=== PATIENT | male | born 1965 | race Caucasian/White ===

== ENCOUNTER 2020-07-13 04:40 | Emergency (ER) | payer OTHER, SELFPAY ==
--- NOTE | ~2020-07-13 | XR_ITS ---
EXAMINATION: XR abdomen/kub 1V EXAM DATE: 07/13/2020 06:19 INDICATION: Left flank pain for 3 hours. TECHNIQUE: Frontal projection(s) of the abdomen for interpretation. Correlation is made to CT abdomen same date. FINDINGS: The 7 mm left proximal ureteral stone is well visualized, indicated. Additional small left nephrolithiasis identified. Nonobstructive bowel gas pattern. Mild bony degenerative changes. Calcifi cations in the pelvis are believed to be phleboliths. IMPRESSION: Left proximal ureteral stone, nephrolithiasis identified, indicated. Reviewed, dictated and finalized at location A. HER IMPRESSION: Left proximal ureteral stone, nephrolithiasis identified, indicated .
--- NOTE | ~2020-07-13 | CT_ITS ---
EXAMINATION: CT abdomen pelvis wo con EXAM DATE: 07/13/2020 05:37 INDICATION: Left flank pain. TECHNIQUE: Spiral CT of the abdomen and pelvis was performed without contrast. Axial, coronal and sag ittal images were reviewed. The dose-length product (DLP) for this examination was 1303.91 mGy-cm. The exposure was tailored according to patient size (auto mA exposure control), and iterative reconst ruction (ASIR) was used as additional dose reduction technique. There is no prior study for comparis on. FINDINGS: There are 2 right renal cysts, largest measuring 3 cm. There is a 7 mm stone in the proxima l aspect left ureter with mild obstructive nephropathy. This is at the L4 level. Additional 3 mm infe rior calyceal stone. The prostate is unremarkable. The bladder is unremarkable. The liver, spleen, adrenal glands and pancreas are unremarkable. Gallbladder is unremarkable. No biliary obstruction. There is no retroperitoneal or pelvic lymphadenopathy. Tiny umbilical fat-containing hernia. The appendix is not positively visualized. There is no pericecal inflammatory change to suggest appe ndicitis. The stomach and small bowel are unremarkable. There is expected amount of colonic stool. No free intraperitoneal gas. The heart is normal in size. There are no pericardial or pleural e ffusions. The lung bases are unremarkable. There are no osteoblastic or osteolytic lesions identifi ed. IMPRESSION: 1. Left proximal ureteral 7 mm stone, mild obstructive nephropathy. 2. Small left nephrolithiasis. Reviewed, dictated and finalized at location A. ATION OFFICER
[2020-07-13 04:43] VITALS: BP 164/90; PULSE 92; RESP 17; TEMP 36.3; O2SAT 100
--- NOTE | 2020-07-13 04:57 | ED.BACK ---
HPI - Back Pain/Injury General Chief Complaint: Back Pain/Injury Stated Complaint: L Flank pain Time Seen by Provider: 07/13/20 04:43 Source: patient Mode of arrival: ambulatory Limitations: no limitations History of Present Illness HPI Narrative: This patient is 54 year old male with history of hypertension and hyperlipidemia who presents for evaluation of left flank pain. He states this pain woke him up from his sleep 2 hours ago. He reports his pain is gradually worsening and his pain has also moved to left lower abdomen. He has nausea but no vomiting or diarrhea. She denies fever or chills. He denies dysuria or hematuria. He was able to urinate prior to arrival without difficulty. He also denies taking anything for pain. Related Data Home Medications Medication Instructions Recorded Confirmed rosuvastatin 5 mg PO DAILY 09/18/19 valsartan-hydrochlorothiazide 12.5 tablet PO DAILY 09/18/19 indomethacin 25 mg PO DAILY 07/13/20 07/13/20 Allergies Allergy/AdvReac Type Severity Reaction Status Date / Time No Known Allergies Allergy Verified 07/13/20 05:23 Review of Systems Review of Systems: All systems reviewed & are unremarkable except as noted in HPI and below PMFSH Past Medical History Medical History (Updated 07/13/20 @ 07:13 by Alissa Shah MD) Cervical vertebral fusion 4-6 HTN (hypertension) Sleep apnea Surgical History Surgical History Hx of appendectomy Social History Social History (Updated 09/18/19 @ 16:48 by OCTAVIANO Gracia) Smoking status: Never smoker Gender identity (if verbalized by the patient): Male Exam Const: General: alert Orientation/consciousness: patient oriented x3 Other: patient standing up leaning on counter in pain Eyes: EOM: EOMs intact bilaterally Neck: Neck: no lymphadenopathy Resp: Effort & Inspection: normal respiratory effort and no retractions Auscultation: clear to auscultation bilaterally Cardio: Rate: regular rate Rhythm: regular rhythm Heart sounds: no murmurs GI: GI Palp: Yes Soft to palpation, Yes Tenderness to palpation present (GI) (LUQ), No Guarding due to palpation present (GI), No Rigid due to palpation and No Hernia present : General: Yes no CVA tenderness Back/Spine/Pelvis: Back: no CVA tenderness Skin: General skin exam: normal color Rashes: no rashes Course Reevaluation(s) Reevaluation #1: I discussed CT findings and treatment. I discussed discharge vs admission. He appears comfortable with discharge. Date: 07/13/20 Time: 07:04 Consultations Consultation #1: I Discussed case with Dr. Andrea who is agreeable to patient discharge . Patient should have KUB and urine culture Date: 07/13/20 Time: 07:11 Vital Signs Vital signs: Vital Signs Temperature 97.3 F L 07/13/20 04:43 Pulse Rate 92 07/13/20 04:43 Respiratory Rate 17 07/13/20 04:43 Blood Pressure 164/90 H 07/13/20 04:43 Pulse Oximetry 100 07/13/20 04:43 Temperature 97.3 F L 07/13/20 04:43 Pulse Rate 92 07/13/20 04:43 Respiratory Rate 17 07/13/20 04:43 Blood Pressure 164/90 H 07/13/20 04:43 Pulse Oximetry 100 07/13/20 04:43 MDM - Back Pain/Injury Lab Data Attestation: I reviewed the patient's lab results. Result diagrams: 07/13/20 05:07 07/13/20 05:07 Labs: Lab Results 07/13/20 07/13/20 07/13/20 Range/Units 05:07 05:07 06:47 WBC 7.8 (4.5-10.0) K/mm3 RBC 4.86 (4.6-6.20) M/mm3 Hgb 14.6 (14.0-18.0) g/dL Hct 43.7 (42.0-52.0) % MCV 89.9 (80-100) fl MCH 30.0 (26-34) pg MCHC 33.4 (32-36) g/dl RDW 12.6 (11.5-14.5) % Plt Count 202 (150-375) k/mm3 MPV 9.7 (7.4-10.4) fl Immature Gran % (Auto) 0.5 (0-0.5) % Neut % (Auto) 55.4 (45.5-73.1) % Lymph % (Auto) 33.8 (18.3-44.2) % Grady % (Auto) 8.2 (2.6-8.5) % Eos % (Auto) 1.5 (0-4.4) % Baso % (Auto) 0.6
[2020-07-13] MEDS: ONDANSETRON INJ 4 MG/2 ML VIAL IV PUSH (05:16)
[2020-07-13] MEDS: MORPHINE SULFATE (*CRX) 4 MG/ML INJ IV PUSH (05:16)
[2020-07-13 05:18] LABS: Basophils Absolute Auto 0.1 K/mm3 (0.0-0.1); Basophils Percent Auto 0.6 % (0.2-1.2); Eosinophils Absolute Auto 0.1 K/mm3 (0-0.3); Eosinophils Percent Auto 1.5 % (0-4.4); Hematocrit 43.7 % (42.0-52.0); Hemoglobin 14.6 g/dL (14.0-18.0); Immature Granulocyte Absolute 0.04 K/mm3 (0.00-0.031); Immature Granulocyte Percent A 0.5 % (0-0.5); Lymphocytes Absolute Auto 2.63 K/mm3 (0.9-3.2); Lymphocytes Percent Auto 33.8 % (18.3-44.2); Mean Corpuscular HGB Conc 33.4 g/dl (32-36); Mean Corpuscular Volume 89.9 fl (80-100); Mean Platelet Volume 9.7 fl (7.4-10.4); Monocytes Absolute Auto 0.6 K/mm3 (0.1-0.6); Monocytes Percent Auto 8.2 % (2.6-8.5); Neutrophils Absolute Auto 4.3 K/mm3 (1.3-6.7); Neutrophils Percent Auto 55.4 % (45.5-73.1); Platelet Count Result 202 k/mm3 (150-375); Red Blood Count 4.86 M/mm3 (4.6-6.20); Red Cell Distribution Width 12.6 % (11.5-14.5); White Blood Count 7.8 K/mm3 (4.5-10.0)
[2020-07-13 05:33] LABS: Alanine Aminotransferase 29 U/L (4-50); Albumin Level 4.3 g/dL (3.5-5.1); Alkaline Phosphatase 56 U/L (38-126); Anion Gap 9 mmol/L (8-16); Aspartate Amino Transferase 27 U/L (17-59); Bilirubin,Total 0.4 mg/dL (0.2-1.3); Blood Urea Nitrogen 21 mg/dL (9-20); Calcium 9.3 mg/dL (8.4-10.2); Carbon Dioxide 28 mmol/L (22-30); Chloride 100 mmol/L (98-107); Estimated CRCL calculation 76 ml/min; Estimated Glomerular Filt Rate > 60; Glucose 201 mg/dL (75-110); Lipase 130 U/L (23-300); Potassium 4.2 mmol/L (3.4-5.0); Sodium 137 mmol/L (137-145)
[2020-07-13] MEDS: SODIUM CHLORIDE 0.9% IV 1,000 ML 999 ML IV CONT (05:42)
[2020-07-13] MEDS: MORPHINE SULFATE (*CRX) 4 MG/ML INJ 6 MG IV PUSH (06:39)
[2020-07-13] MEDS: TAMSULOSIN HCL 0.4 MG CAPSULE PO (06:41)
[2020-07-13 07:04] LABS: Add Urine Microscopic? YES; Appearance Urine Clear (Clear); Bilirubin Urine Negative (Negative); Blood Urine 2+ (Negative); Color Urine Straw (Yellow); Glucose Urine UA Negative (Negative); Ketones Urine Negative (Negative); Leukocyte Esterase Ur Negative LEU/UL (Negative); Mucus Urine Rare /lpf; Nitrate Urine Negative (Negative); Protein Urine Negative (Negative); Specific Grav Ur 1.018 (1.001-1.035); Squamous Epithelial Cell Urine Rare /hpf (Few); Urobilinogen Urine Negative mg/dL (<2.0); WBC Urine 0-3 /hpf
== END 2020-07-13 07:39 | disposition home or self-care (01) ==
PROVIDERS: Emergency Provider General Practice; PCP Internal Medicine
DX: N13.2 Hydronephrosis with renal and ureteral calculous obstruction (principal); I10 Essential (primary) hypertension; G47.30 Sleep apnea, unspecified
CPT/HCPCS: 36415; 74018; 74176; 80053; 81001; 83690; 85025; 87086; 96361; 96365; 96375; 96376; 99284; A9270; J0131; J2270; J2405; J7030

== ENCOUNTER 2020-07-15 13:37 | Observation (INO) | payer OTHER, SELFPAY ==
[2020-07-15] VITALS (21 sets, daily range): BP systolic 138–161; BP diastolic 66–82; PULSE 61–94; RESP 16–20; TEMP 36.2–37.4; O2SAT 94–100; BMI 35.3; BMI 35.5
--- NOTE | ~2020-07-15 | XR_ITS ---
EXAMINATION: XR abdomen/kub 1V EXAM DATE: 07/16/2020 07:34 INDICATION: Follow up for lithotripsy of left kidney stone. TECHNIQUE: Frontal projection(s) of the abdomen for interpretation. Comparison is made to prior exami nation from 07/15/2020. FINDINGS: Small stone fragments suspected within the left ureter proximally and distally. This findin g has been indicated, marked on the examination for review, clinical correlation. Large pelvic calcif ications consistent with phleboliths. Moderate amount of colonic stool. Nonobstructive bowel gas dillon francesco. There is no organomegaly. There are mild bony degenerative changes. IMPRESSION: Left ureteral stone fragments. Reviewed, dictated and finalized at location A. NT ASSISTANT
--- NOTE | ~2020-07-15 | XR_ITS ---
XR abdomen/kub 1V DATE: 07/15/2020 18:51 INDICATION: Left lower quadrant abdominal pain today. Lithotripsy yesterday for left kidney stones TECHNIQUE: AP projection, 2 views COMPARISON: 07/15/2020 CT abdomen pelvis noncontrast examination FINDINGS: There is a small calcified calculus at the lower pole of the left kidney. Physical examination no calcified calculi are noted to proxy 3 mm in the proximal left ureter at the L3-4 level. Additional small calcified distal left ureteral calculi are noted. Bilateral calcified pelvic phleboliths. The psoas shadows are intact. No visceromegaly is evident. The bowel gas pattern is unremarkable. IMPRESSION: Small left renal calcified calculus Proximal and distal left ureteral calcified calculi Reviewed, dictated and finalized at Location A. Reviewed, dictated and finalized at location A. TMENT RENTAL CLERK
--- NOTE | ~2020-07-15 | CT_ITS ---
EXAMINATION: CT abdomen pelvis wo con DATE: 07/15/2020 17:18 INDICATION: Abdominal pain TECHNIQUE: Computed tomography (CT) of the abdomen and pelvis was performed without intravenous contr ast. Automated exposure control and iterative reconstruction technique were employed. Exam dose: 105 5.05 mGy-cm total exam DLP. COMPARISON: 07/13/2020 CT abdomen pelvis noncontrast examination 07/13/2020 KUB FINDINGS: There is bilateral lower lobe dependent atelectasis, mild atelectasis at the base of the li ngula. Small probable fissural node along the minor fissure (series 4 image 3). Normal heart size. No pericardial or pleural effusion. The liver, gallbladder, bile ducts, spleen, pancreas and pancreatic duct appear normal. Normal morpho logy of the adrenal glands. There are two approximately 2.1 cm and 2.8 cm upper pole right renal cysts. 4.8 mm nonobstructing lower pole left renal calculus. There is moderate left hydroureteronephrosis. There are multiple left ureteral calculi including up to approximately 4.5 x 9.5 mm proximal left ure teral calculus at the upper L4 level, two or three contiguous distal up to several millimeter left ur eteral calculi. In addition, there is an approximately 2.5 lateral left ureteral vesicle junction george culus. There is some periureteral stranding, particularly at the proximal to mid left ureter, which may be s econdary to obstruction. Infection is not excluded. No right urinary tract calculus or hydroureteronephrosis. Normal caliber of the abdominal aorta. No intraperitoneal or retroperitoneal or pelvic mass lesion or adenopathy or ascites. There is mild prostate calcification. The urinary bladder is unremarkable. No evidence of bowel obstruction. No bowel wall thickening or pneumatosis or intraperitoneal free ai r. Included skeletal structures are unremarkable. IMPRESSION: Multiple left ureteral calculi with moderate left hydroureteronephrosis Lower pole nonobstructing left renal calculus Periureteral stranding on the left which may be secondary to obstruction; infection is not excluded Probable right renal cysts Reviewed, dictated and finalized at Location A. Reviewed, dictated and finalized at location A. AND DIE REPAIRER IMPRESSION: Multiple left ureteral calculi with moderate left hydroureteroneph rosis Lower pole nonobstructing left renal calculus Periureteral stranding on the left which may be secondary to obstruction; infec tion is not excluded Probable right renal cysts
--- NOTE | 2020-07-15 14:57 | ED.GENADULT ---
HPI - General Adult General Chief complaint: Urogenital-Male Stated complaint: abd pain after urology procedure, hematuria Time Seen by Provider: 07/15/20 14:23 Source: patient Mode of arrival: ambulatory Limitations: no limitations History of Present Illness HPI narrative: Patient is a 54-year-old male who presents with left flank pain that began today and acutely increased patient had lithotripsy yesterday has had nausea and vomiting with the pain today is taken Percocet but difficulty keeping medications down secondary to emesis. Patient is followed by urology at [facility] patient notes low-grade fever Related Data Home Medications Medication Instructions Recorded Confirmed rosuvastatin 5 mg PO DAILY 09/18/19 valsartan-hydrochlorothiazide 12.5 tablet PO DAILY 09/18/19 indomethacin 25 mg PO DAILY 07/13/20 07/13/20 Allergies Allergy/AdvReac Type Severity Reaction Status Date / Time No Known Allergies Allergy Verified 07/15/20 13:46 Review of Systems Review of Systems: All systems reviewed & are unremarkable except as noted in HPI and below PMFSH Past Medical History Medical History (Updated 07/15/20 @ 18:49 by Armani Zeng PA-C) Cervical vertebral fusion 4-6 HTN (hypertension) Sleep apnea Surgical History Surgical History Hx of appendectomy Social History Social History Smoking status: Never smoker Gender identity (if verbalized by the patient): Male Exam Narrative: Exam Narrative: GENERAL: Well-appearing, well-nourished, and in no acute distress. HEAD: Normocephalic, atraumatic. EYES: PERRLA and EOMI. ENT: Nares clear, no rhinorrhea or epistaxis. Mucous membranes moist. CHEST: Clear to auscultation. No respiratory distress. No wheezes rales or rhonchi HEART: Regular rate and rhythm. No murmur heard. Normal peripheral pulses. ABDOMEN: Soft, left lower abdominal tenderness to palpation, nondistended EXTREMITIES: Normal range of motion. No edema. SKIN: Warm, dry, no rash. NEURO: No focal deficits. Alert and oriented x3. PSYCH: Normal mood and affect. Course Course Emergency Course: Patient in the room in no distress aware of case findings treatment plan diagnosis discussion with urologist agrees to follow with urology in hospital due to increasing pain has been given multiple rounds of pain medication and fluids Consultations Consultation #1: Patient case discussed with urology who will admit the patient Date: 07/15/20 Time: 18:47 Vital Signs Vital signs: Vital Signs Temperature 99.3 F 07/15/20 13:43 Pulse Rate 94 07/15/20 13:43 Respiratory Rate 16 07/15/20 13:43 Blood Pressure 154/66 H 07/15/20 13:43 Pulse Oximetry 100 07/15/20 13:43 Temperature 99.3 F 07/15/20 13:43 Pulse Rate 82 07/15/20 18:17 Respiratory Rate 16 07/15/20 18:17 Blood Pressure 151/82 H 07/15/20 18:17 Pulse Oximetry 97 07/15/20 18:17 Medical Decision Making MDM Narrative Medical decision making narrative: Patient with urolithiasis intractable pain will be placed in hospital to the urologist hydrated has CT imaging blood work performed Vital Signs Vital Signs: Vital Signs Temperature 99.3 F 07/15/20 13:43 Pulse Rate 94 07/15/20 13:43 Respiratory Rate 16 07/15/20 13:43 Blood Pressure 154/66 H 07/15/20 13:43 Pulse Oximetry 100 07/15/20 13:43 Temperature 99.3 F 07/15/20 13:43 Pulse Rate 82 07/15/20 18:17 Respiratory Rate 16 07/15/20 18:17 Blood Pressure 151/82 H 07/15/20 18:17 Pulse Oximetry 97 07/15/20 18:17 Lab Data Result diagrams: 07/15/20 15:08 07/15/20 15:08 Labs: Lab Results 07/15/20 07/15/20 07/15/20 Range/Units 15:08 15:08 15:08 WBC 24.4 H (4.5-10.0) K/mm3 RBC 5.08 (4.6-6.20) M/mm3 Hgb 15.2 (14.0-18.0) g/dL Hct 45.1 (42.0-52.0) % MCV 88.8
[2020-07-15] MEDS: ONDANSETRON INJ 4 MG/2 ML VIAL IV PUSH (15:04)
[2020-07-15] MEDS: SODIUM CHLORIDE 0.9% IV 1,000 ML 999 ML IV CONT ×2 (15:04→16:55)
[2020-07-15] MEDS: MORPHINE SULFATE (*CRX) 4 MG/ML INJ IV PUSH (15:04)
--- NOTE | 2020-07-15 15:14 | PC.NURSE ---
SPOKE WITH LAB, ROSMERY STATES THAT HE WILL ADD ON THE URINE.
[2020-07-15 15:17] LABS: Hematocrit 45.1 % (42.0-52.0); Hemoglobin 15.2 g/dL (14.0-18.0); Mean Corpuscular HGB Conc 33.7 g/dl (32-36); Mean Corpuscular Hemoglobin 29.9 pg (26-34); Mean Corpuscular Volume 88.8 fl (80-100); Mean Platelet Volume 11.1 fl (7.4-10.4); Platelet Count Result 259 k/mm3 (150-375); Red Blood Count 5.08 M/mm3 (4.6-6.20); Red Cell Distribution Width 12.7 % (11.5-14.5); White Blood Count 24.4 K/mm3 (4.5-10.0)
[2020-07-15 15:25] LABS: Add Urine Microscopic? YES; Appearance Urine Clear (Clear); Bilirubin Urine Negative (Negative); Blood Urine 3+ (Negative); Color Urine Yellow (Yellow); Glucose Urine UA Negative (Negative); Ketones Urine Negative (Negative); Leukocyte Esterase Ur Trace LEU/UL (Negative); Mucus Urine Rare /lpf; Nitrate Urine Negative (Negative); Protein Urine 2+ mg/dL (Negative); RBC Urine >75 /hpf (0-2); Specific Grav Ur 1.024 (1.001-1.035); Urobilinogen Urine Negative mg/dL (<2.0); WBC Urine 0-3 /hpf
[2020-07-15 15:43] LABS: Band Neutrophils Percent 1 % (0-6); Lymphocytes Absolute Manual 1.95 K/mm3 (1.1-4.5); Monocytes Absolute Manual 0.48 K/mm3 (0.1-0.90); Monocytes Percent Manual 2 % (3-9); Neutrophils Absolute Manual 21.96 K/mm3 (1.3-6.7); Neutrophils Percent Manual 89 % (46-73); Total Cells Counted 100
[2020-07-15 15:44] LABS: Platelet Estimate Adequate (Adequate)
[2020-07-15 15:53] LABS: Anion Gap 14 mmol/L (8-16); Blood Urea Nitrogen 27 mg/dL (9-20); Calcium 9.7 mg/dL (8.4-10.2); Carbon Dioxide 25 mmol/L (22-30); Chloride 99 mmol/L (98-107); Estimated CRCL calculation 70 ml/min; Estimated Glomerular Filt Rate 58; Glucose 124 mg/dL (75-110); Potassium 4.4 mmol/L (3.4-5.0); Sodium 138 mmol/L (137-145)
[2020-07-15] MEDS: HYDROmorphone HCL INJ (*CRX) 1 MG/ML SYR IV PUSH ×2 (16:11→17:49)
--- NOTE | 2020-07-15 17:18 | PC.NURSE ---
PT IN CT.
--- NOTE | 2020-07-15 17:40 | PC.NURSE ---
PT C/O ACUTE PAIN, KULWINDER ALVARADO INFORMED, AWAITING ORDERS FOR PAIN MEDICATION.
--- NOTE | 2020-07-15 18:43 | PC.NURSE ---
PT IN XRAY
--- NOTE | 2020-07-15 19:19 | PC.NURSE ---
PT REPORT TO YOVANA PRABHAKAR AT THIS TIME.
[2020-07-15] MEDS: LACTATED RINGERS 1,000 ML 125 ML IV CONT (21:51)
[2020-07-15] MEDS: KETOROLAC 30 MG/ML VIAL (*BKC) 15 MG IV PUSH (22:24)
[2020-07-15] MEDS: FAMOTIDINE 20 MG/2 ML VIAL IV PUSH (22:26)
[2020-07-16 01:45] VITALS: PULSE 75; RESP 14; O2SAT 99
[2020-07-16 04:02] VITALS: BP 110/60; PULSE 87; RESP 20; TEMP 36.3; O2SAT 99
[2020-07-16 05:57] VITALS: PULSE 74; RESP 16; O2SAT 99
[2020-07-16 06:01] VITALS: O2SAT 99
[2020-07-16] MEDS: LACTATED RINGERS 1,000 ML 125 ML IV CONT (06:32)
--- NOTE | 2020-07-16 07:44 | WPDURCON ---
Assessment and Plan Assessment and plan (1) Urolithiasis: Code(s): N20.9 - Urinary calculus, unspecified Status: Acute Assessment and Plan: Patient with pain passing stone fragments status post ESWL. Feeling better this morning - plan discharge home today - continue tamsulosin, fluid hydration, nonsteroidal anti-inflammatories, and narcotic pain medicine as needed - follow-up as scheduled next week with an x-ray prior to appointment Urology Consult Note HPI Date Seen: 07/16/20 Requesting Physician: Aubrie Fernandez MD Primary Care Provider: Pam Cardoza, Consult Narrative Narrative: Tye Tipton is a 54 year old male Who underwent left ESWL 2 days ago for 9mm proximal ureteral stone. The patient presented to the emergency department with acute pain as he was passing stone fragments. The patient had CT scan performed last night that showed fragmentation of the stone with residual stone fragments in the proximal ureter as well multiple fragments distal ureter. The patient severe pain and was admitted to hospital for observation. Patient feels much better this morning. He voided multiple times and states that he is feeling better despite not noticing significant stone fragments in the urine, however ureter was not being strained. Patient would like to go home this morning. Review of Systems Constitutional: Constitutional: Reports as per HPI [facility] Past Medical History Medical History (Updated 07/15/20 @ 18:49 by Armani Zeng PA-C) Cervical vertebral fusion 4-6 HTN (hypertension) Sleep apnea Surgical History Surgical History Hx of appendectomy Family History Family History (Updated 07/15/20 @ 22:19 by Rosaline Jalloh RN) Father Diabetes mellitus Acute myocardial infarction Mother Diabetes mellitus Chronic obstructive pulmonary disease Mother Breast cancer Sibling Breast cancer Social History Social History Smoking status: Never smoker Alcohol intake: current Drinks per week: 1 Substance use: never Substance use type: does not use Gender identity (if verbalized by the patient): Male Sexual Orientation (if Verbalized by the Patient): Straight or Heterosexual Spiritual care concerns: No Meds Home Medications and Allergies Home Medications Medication Instructions Recorded Confirmed Type rosuvastatin 5 mg PO DAILY 09/18/19 07/15/20 History valsartan-hydrochlorothiazide 12.5 tablet PO DAILY 09/18/19 07/15/20 History ondansetron HCl [Zofran] 4 mg PO Q6H PRN #14 tablet 07/13/20 07/15/20 Rx oxycodone-acetaminophen [Percocet] 1 tablet PO Q6H PRN #14 tablet 07/13/20 07/15/20 Rx tamsulosin [Flomax] 0.4 mg PO DAILY #7 cap 07/13/20 07/15/20 Rx Allergies Allergy/AdvReac Type Severity Reaction Status Date / Time No Known Allergies Allergy Verified 07/15/20 13:46 Vital Signs Vital Signs - 24 hr 07/15/20 13:43 07/15/20 16:46 07/15/20 16:54 Temperature 37.4 C Pulse Rate 94 61 Respiratory Rate 16 16 Blood Pressure 154/66 H 138/66 Pulse Oximetry 100 100 96 07/15/20 17:04 07/15/20 17:28 07/15/20 17:29 Temperature Pulse Rate Respiratory Rate Blood Pressure 161/73 H Pulse Oximetry 96 100 100 07/15/20 17:30 07/15/20 17:45 07/15/20 18:00 Temperature Pulse Rate Respiratory Rate Blood Pressure Pulse Oximetry 98 100 98 07/15/20 18:17 07/15/20 18:30 07/15/20 19:12 Temperature Pulse Rate 82 Respiratory Rate 16 Blood Pressure 151/82 H Pulse Oximetry 97 97 97 07/15/20 19:15 07/15/20 19:30 07/15/20 19:45 Temperature Pulse Rate Respiratory Rate Blood Pressure Pulse Oximetry 98 97 96 07/15/20 20:08 07/15/20 20:15 07/15/20 20:30 Temperature Pulse Rate Respiratory Rate Blood Pressure Pulse Oximetry 98 96 97
[2020-07-16 08:10] LABS: Hematocrit 40.7 % (42.0-52.0); Hemoglobin 13.4 g/dL (14.0-18.0); Mean Corpuscular HGB Conc 32.9 g/dl (32-36); Mean Corpuscular Hemoglobin 29.9 pg (26-34); Mean Corpuscular Volume 90.8 fl (80-100); Mean Platelet Volume 9.8 fl (7.4-10.4); Platelet Count Result 163 k/mm3 (150-375); Red Blood Count 4.48 M/mm3 (4.6-6.20); Red Cell Distribution Width 13.2 % (11.5-14.5); White Blood Count 11.3 K/mm3 (4.5-10.0)
[2020-07-16 08:21] LABS: Anion Gap 6 mmol/L (8-16); Blood Urea Nitrogen 25 mg/dL (9-20); Calcium 8.7 mg/dL (8.4-10.2); Carbon Dioxide 29 mmol/L (22-30); Chloride 104 mmol/L (98-107); Estimated CRCL calculation 62 ml/min; Estimated Glomerular Filt Rate 49; Glucose 95 mg/dL (75-110); Potassium 4.4 mmol/L (3.4-5.0); Sodium 139 mmol/L (137-145)
== END 2020-07-16 09:19 | disposition home or self-care (01) ==
LOC: ANHED 18:49 → ANH3MEDSUR 20:20
PROVIDERS: Emergency Medicine Emergency Medical Services; Admitting Provider Urology; Emergency Provider Emergency Medicine; PCP Internal Medicine; Visit Provider Urology
DX: N13.2 Hydronephrosis with renal and ureteral calculous obstruction (principal); R11.2 Nausea with vomiting, unspecified; Z98.890 Other specified postprocedural states; I10 Essential (primary) hypertension; G47.30 Sleep apnea, unspecified; Z95.1 Presence of aortocoronary bypass graft
CPT/HCPCS: 36415; 74018; 74176; 80048; 81001; 85025; 85027; 96361; 96365; 96375; 96376; 99285; G0378; J0131; J1170; J1885; J2270; J2405; J7030; J7120

== ENCOUNTER 2023-09-10 00:49 | Day surgery (SDC) | payer OTHER, SELFPAY ==
[2023-08-13 14:07] VITALS: BMI 36.9
--- NOTE | 2023-09-07 08:54 | SUR.PREOP ---
Patient called regarding upcoming procedure. Reviewed preop instructions, appointment times, and procedure prep.
--- NOTE | 2023-09-07 16:14 | PM.HPGS ---
History of Present Illness History of Present Illness Consent: Risks, benefits, and alternatives have been discussed and questions answered. Patient agrees to proceed with procedure. Chief complaint: hx colon polyps Narrative: Tye Tipton is a 57 year old male Referred for colon cancer screening. He has a history of polyps. His last colonoscopy was about 5 years ago and was negative for polyps. Review of Systems Review of Systems: All systems reviewed & are unremarkable except as noted in HPI and below PMFSH Past Medical History Medical History Cervical vertebral fusion 4-6 HTN (hypertension) Sleep apnea Surgical History Surgical History Hx of appendectomy Family History Family History Father Diabetes mellitus Acute myocardial infarction Mother Diabetes mellitus Chronic obstructive pulmonary disease Mother Breast cancer Sibling Breast cancer Social History Social History Smoking status: Never smoker Alcohol intake: current Drinks per week: 3 Substance use: never Substance use type: does not use Living arrangements: with family Gender identity (if verbalized by the patient): Male Sexual Orientation (if Verbalized by the Patient): Straight or Heterosexual Spiritual care concerns: No Meds Home Medications and Allergies Home Medications Medication Instructions Recorded Confirmed Type rosuvastatin 5 mg tablet 5 mg PO DAILY 09/18/19 09/10/23 History valsartan 80 12.5 tablet PO DAILY 09/18/19 09/10/23 History mg-hydrochlorothiazide 12.5 mg tablet Allergies Allergy/AdvReac Type Severity Reaction Status Date / Time No Known Allergies Allergy Verified 09/10/23 06:47 Exam Const: General: alert Orientation/consciousness: patient oriented x3 Resp: Auscultation: clear to auscultation bilaterally Cardio: Rhythm: regular rhythm GI: GI Palp: Yes Soft to palpation and No Tenderness to palpation present (GI) Neuro: General: patient oriented x3 Assessment and Plan Assessment and plan (1) Colon cancer screening: Code(s): Z12.11 - Encounter for screening for malignant neoplasm of colon Status: Acute Assessment and Plan: Colonoscopy with possible biopsy or polypectomy or cautery or injection of substances.
[2023-09-10 06:48] VITALS: BP 128/75; PULSE 71; RESP 20; TEMP 36.2; O2SAT 100
[2023-09-10] MEDS: LACTATED RINGERS 1,000 ML 150 ML IV CONT (06:50)
[2023-09-10] MEDS: SIMETHICONE ORAL SUSPENSION 20 MG/0.3 ML 30 ML BOTTLE 0.6 ML IRRIGATION (08:12)
--- NOTE | 2023-09-10 08:17 | P.PNAN_ITS ---
Anes - Initial Pre Proc Eval Procedure: Operation Date: 09/10/23 08:00 Proposed Procedures p Colonoscopy - Bacilio Shah MD Date/Time: 09/10/23 08:17 Surgeon: Bacilio Shah MD Pre Op Diagnosis: hx colon polyps Patient Data Age: 57 Gender: M Height: 1.7 m Weight: 105.2 kg Last Vital Signs Temp 97.2 F L 09/10/23 06:48 Pulse 71 09/10/23 06:48 Resp 20 09/10/23 06:48 BP 128/75 09/10/23 06:48 Pulse Ox 100 09/10/23 06:48 O2 Del Method Room Air 09/10/23 06:48 Allergies Allergy/AdvReac Type Severity Reaction Status Date / Time No Known Allergies Allergy Verified 09/10/23 06:47 Home Medications Medication Instructions Recorded Confirmed Type rosuvastatin 5 mg tablet 5 mg PO DAILY 09/18/19 09/10/23 History valsartan 80 12.5 tablet PO DAILY 09/18/19 09/10/23 History mg-hydrochlorothiazide 12.5 mg tablet Patient hx anesthesia problems: none Family hx anesthesia problems: none Results Review: All pre-operative results and documents have been reviewed as part of the pre- operative evaluation. [facility] Past Medical History Medical History Cervical vertebral fusion 4-6 HTN (hypertension) Sleep apnea Surgical History Surgical History Hx of appendectomy Family History Family History Father Diabetes mellitus Acute myocardial infarction Mother Diabetes mellitus Chronic obstructive pulmonary disease Mother Breast cancer Sibling Breast cancer Social History Social History Smoking status: Never smoker Alcohol intake: current Drinks per week: 3 Substance use: never Substance use type: does not use Living arrangements: with family Gender identity (if verbalized by the patient): Male Sexual Orientation (if Verbalized by the Patient): Straight or Heterosexual Spiritual care concerns: No Anes - Eval Final PreProcedure Day of Procedure 09/10/23 08:17 Patient weight: obese Heart: regular rate and rhythm Lungs: clear to auscultation Airway: Mallampati scale class II Neurological: alert and oriented Last oral intake: >/= 8 hours ASA classification: III Emergent: no Anesthetic plan: proceed Anesthesia type and monitoring: general GIVS and standard monitoring Results Review: All pre-operative results and documents have been reviewed as part of the pre- operative evaluation. Informed Consent: The patient's anesthetic plan and its attendant risks and benefits were discussed with the patient/family/POA. Questions were solicited and answers provided to the satisfaction of the patient/family/POA.
[2023-09-10 08:22] VITALS: BP 97/60; PULSE 69; RESP 20; O2SAT 100
[2023-09-10 08:32] VITALS: BP 94/62; PULSE 64; RESP 20; O2SAT 100
[2023-09-10 08:42] VITALS: BP 108/66; PULSE 59; RESP 20; O2SAT 99
== END 2023-09-10 08:50 | disposition home or self-care (01) ==
PROVIDERS: PCP Internal Medicine; Visit Provider Internal Medicine Gastroenterology
PROC: 0DJD8ZZ Inspection of Lower Intestinal Tract, Via Natural or Artificial Opening Endoscopic (ICD-10-PCS; CPT 45378; principal; 2023-09-10 08:00)
DX: Z12.11 Encounter for screening for malignant neoplasm of colon (principal); I10 Essential (primary) hypertension; G47.30 Sleep apnea, unspecified; E66.9 Obesity, unspecified; Z68.36 Body mass index [BMI] 36.0-36.9, adult; Z98.1 Arthrodesis status; Z86.010 Personal history of colon polyps; Z82.49 Family history of ischemic heart disease and other diseases of the circulatory system; Z80.3 Family history of malignant neoplasm of breast
CPT/HCPCS: 45378; J2704; J7120

== ENCOUNTER 2025-02-03 14:40 | Outpatient (RCR) | payer OTHER, SELFPAY ==
[2025-02-03 14:45] VITALS: BMI 33.7
== END 2025-04-20 10:38 | disposition home or self-care (01) ==
LOC: ANHDMC 14:40
PROVIDERS: PCP Nurse Practitioner Family; Visit Provider Nurse Practitioner Family
DX: E11.9 Type 2 diabetes mellitus without complications (principal); Z71.3 Dietary counseling and surveillance
CPT/HCPCS: 97802